=== PATIENT | female | born 1975 | race Caucasian/White ===

== ENCOUNTER 2016-12-09 07:43 | Emergency (ER) | payer MEDICARE ==
[2016-12-09] MEDS ORDERED: OPTIRAY 350 100 ML VIAL HMH IV ONE (07:44)
[2016-12-09] MEDS ORDERED: ONDANSETRON 4 MG VIAL ONE ×2 (08:27→13:49)
[2016-12-09] MEDS ORDERED: KETOROLAC 30 MG/ML VIAL ONE (08:28)
[2016-12-09] MEDS ORDERED: SODIUM CHLORIDE 0.9% 1,000 ML ONE (08:28)
[2016-12-09] MEDS ORDERED: MORPHINE 4 MG/ML SYR ONE (13:49)
== END 2016-12-09 14:39 | disposition home or self-care (01) ==
LOC: ER 07:43
DX: N13.2 Hydronephrosis with renal and ureteral calculous obstruction (principal); R31.9 Hematuria, unspecified; B37.3 Candidiasis of vulva and vagina; N76.0 Acute vaginitis; Z79.899 Other long term (current) drug therapy
CPT/HCPCS: 36415; 74000; 74177; 80053; 81001; 85025; 87088; 87491; 87591; 87800; 96361; 96374; 96375; 99284; J1885; J2270; J2405; Q9967